=== PATIENT | male | born 1945 | race Hispanic/Latino ===

== ENCOUNTER 2019-04-03 06:13 | Inpatient (IN) | payer MEDICARE, SELFPAY ==
[2019-03-20 13:44] VITALS: BMI 27.5
[2019-04-03] VITALS (15 sets, daily range): BP systolic 95–161; BP diastolic 49–105; PULSE 59–96; RESP 12–20; TEMP 35.8–36.6; O2SAT 94–100; BMI 27.4
--- NOTE | 2019-04-03 | DI.RAD.S_ITS ---
PROCEDURE: XR LUMBAR SPINE 2-3V INDICATIONS: L3-4 TLIF, L4-5 HWR, L3-5 PSF W/ INSTRUMENTATION TECHNIQUE: 2 views of the lumbar spine were acquired. COMPARISON: [facility], CR, L-SPINE 2-3 VIEWS, 10/15/2015, 9:50. [facility], CR, L-SPINE 2-3 VIEWS, 04/04/2009, 13:21. FINDINGS: Bones: 5 [id number] vertebrae are present. There is normal bony alignment established by extension of a previously present set of bilateral fixation devices crossing through the pedicles and with vertical fixation rods at L4-L5. Currently the interbody disc space are previously present at L4-L5 remains present, and a new interbody disc spacer is present at L3-4. The transverse pedicle screws and vertical fixation rods now cross from L3-L5. No vertebral body compression fractures. No suspicious bony lesions. Soft tissues: Overlying bowel gas pattern is normal. No suspicious soft tissue calcifications. IMPRESSION: Successful posterior fixation revision bilaterally now crossing from L3-L5 with interbody disc spacer is present at L3-4 and L4-5. Normal alignment established. Dictated by: Riccardo Yung M.D. on 04/03/2019 at 11:49 Approved by: Riccardo Yung M.D. on 04/03/2019 at 11:51
[2019-04-03] MEDS: LACTATED RINGERS 1,000 ML 42 ML IV ×2 (06:45→10:17)
--- NOTE | 2019-04-03 07:46 | PM.PREOP ---
Pre-operative Note Interval Note History & Physical reviewed/Exam performed by Physician: Yes Changes to H&P: No
[2019-04-03] MEDS: CEFAZOLIN 2 GM/100 ML FROZ.PIGGY IV (07:55)
--- NOTE | 2019-04-03 08:31 | SUR.OPER ---
Prone on spine table, head in foam head support, padded chest and pelvic supports, gel pad at knees, lower legs supported by pillows; nipples, genitalia and toes free of pressure, arms secured on foam padded arm boards at <90 degrees abduction. Tape over blanket at thigh secured to table.
[2019-04-03] MEDS: BUPIVACAINE 0.25% W/ EPI 30 ML VIAL INJ (08:45)
[2019-04-03] MEDS: BUPIVACAINE LIPOSOME 266 MG/20 ML VIAL INJ (08:45)
--- NOTE | 2019-04-03 09:54 | PC.NURSE ---
Day shift: Pt not on AC unit at this time.
--- NOTE | 2019-04-03 11:13 | SUR.OPER ---
Correction to Explant record: [employer] caps x 4, kathy 50mm x1, 55mm x1. These are the only explants.
--- NOTE | 2019-04-03 11:20 | PM.OP.1 ---
Operative Date/Time/Diagnoses Date of procedure: 04/03/19 Time of procedure: 07:53 Pre-op diagnosis: 1. L3-4, L4-5 spinal stenosis 2. L4-5 hx of fusion 3. L3-4, L4-5 spondylosis with radiculopathy Post-op diagnosis: same Procedure & Clinicians Procedure: 1. L3-4 posterolateral and posterior interbody fusion 2. L3-4 posterior interbody cage placement 3. L4-5 posterior non-segmental instrumentation removal 4. L4-5 revision laminectomy with exploration of fusion 5. L3-4, L4-5 posterior segmental instrumentation with pedicle screw placement 6. L4-5 posterolatearl fusion 7. Calvin of bone marrow from iliac crest through a separate incision 8. Utilization of microsurgical technique and operating microscope Same procedure as scheduled: Yes Indications: Patient has been having chronic back pain and worsening lumbar radiculopathy. Patient had prior lumbar fusion at L4-5 level with good relief of pain until about 6 months ago. Patient failed multiple conservative management with worsening pain weakness and numbness in her lower extremity. Patient has been having difficulty performing activity of daily living. After discussing risks benefits of treatment options, patient elected proceed with surgery. Surgeon: Millicent Barrett Stamping Operator: Stephanie Melton Click Yes if Unassisted: No Anesthesia Type: General Operative Notes Closure Type: primary Specimen(s): none sent Prosthetic devices, grafts, tissues, transplants, or devices: GLobus revolve screws, Rise cage Applied: catheter Estimated Blood Loss (mL): 50 Blood products transfused: none Procedure in detail: Patient was seen in the preoperative area. Risks and benefits of the surgery was discussed with the patient. Informed consent was obtained from the patient and placed in the chart. Surgical site was marked. Patient was taken to the operative room. General anesthesia was administered. Prophylactic antibiotic was given to the patient less than 30 min before the incision was made. Patient was placed into a prone position on the Luisito table. Patient's back was then prepped and draped in the sterile fashion. Time-out was performed at this time. Using patient's previous scar incision was made over the L3-4 L4-5 interval on the right side. Fascia was incised in line with skin incision. Patient's previously placed hardware over the L4-5 level was identified by dissecting down to the level the hardware using a Bovie and a Hagen. The locking caps which was removed using globus screwdriver. The locking kathy was then removed from the tulips of the pedicle screws using a Jaziel. The pedicle screws were then removed using the screwdriver. The screws were found to have good purchase except right L5 pedicle screws. The Globus MARS retractors was then placed into the wound and docked onto the L3 lamina using C-arm guidance. Using microsurgical technique and operating microscope a laminectomy facetectomy was performed by removing the L3 lamina and the L3-4 facet. Patient was found have severe neural foramen stenosis which required a total facetectomy at rendered L3-4 level grossly unstable and requiring a fusion procedure the same time. The disc space at L3-4 level was identified next. And a total diskectomy was performed at L3-4 level. The endplates were decorticated using a rasp and shaver. The total diskectomy and decortication was performed at L3-4 level in order to to accomplish a L3-4 fusion. The local bone from the laminectomy and facetectomy was saved for local bone grafting. After the total diskectomy and decortication was completed, Bio4 bone graft material was combined with local bone that was harvested earlier. At this time, a separate skin is incision was made over the iliac crest. A Jamshidi needle was inserted into the iliac crest through a separate skin incision. 5 cc of bone marrow aspiration was obtained through the separate skin incision using a Jamshidi needle from the iliac crest. The bone marrow aspiration was combined with local bone and the Bio4 bone grafting material. The bone grafting material was placed into the L3-4 interbody space along with a expandable cage. The cage was expanded to its maximum height using the torque limiting screwdriver. At this time a mirror image incision was made on the left side. The fascia was incised in line with the skin incision. Patient's previously placed hardware on the left side was then removed in the same fashion as it was on the right side. The hardware was found to have good purchase. The fusion mass on the left side was exposed by performing a left-sided hemilaminectomy at L4-5 level. The hemilaminectomy was performed using the Kerrison rongeur to undercut the lamina as well removing additional epidural scar tissue for purpose of decompressing the epidural space. The fusion mass was explored and was found have visible motion indicating pseudoarthrosis. Globus MARS retractor was inserted and docked onto the L3-4 L4-5 posterolateral gutter. Using the power drill, posterior-lateral decortication was performed at L3-4 L4-5 level until bleeding cortical bone was identified. The remaining bone grafting material was placed into the L3-4 L4-5 posterior lateral gutter he order to accomplish posterolateral fusion at the L3-4 L4-5 level. Using the double C-arm technique, pedicle screws were placed into the L3, L4 and L5 pedicles bilaterally. This was done by placing the Jamshidi needle into the pedicles, then placing the guidewires over the Jamshidi needle, and finally placing the cannulated screws over the guidewires bilaterally. After the pedicle screws were placed, 2 titanium rods was locked into the heads of the pedicle screws using locking caps and torque limiting screwdriver. After all the hardware was placed, and confirmed with AP and lateral C-arm imaging, the wound was then irrigated with sterile normal saline and packed with Ray-Marva gauze for 3 min to accomplish hemostasis. After the gauze was removed the deep fascia was closed with #1 Vicryl suture. The subcutaneous layer was closed with 2-0 Vicryl. The skin was closed with skin jose. Patient tolerated the procedure well. There were no complications. Complications: none Post-operative Condition: stable Disposition: PACU Plan for aftercare: Admit to in patient hospital
[2019-04-03] MEDS: HYDROMORPHONE 2 MG INJ 0.5 MG IV ×4 (11:50→12:05)
--- NOTE | 2019-04-03 12:51 | PC.NURSE ---
Day shift: Pt on unit from PACU at approx 1240. Oriented to room and call light. Spouse at bedside for support. Call light in reach. Pt agrees to not get OOB w/o help from staff. BAck dressing is CDI. PPP and CMS ok. Foot SCD's in place.
[2019-04-03] MEDS: SODIUM CHLORIDE 0.9% 1,000 ML 100 ML IV ×2 (13:37→23:50)
[2019-04-03] MEDS: OXYCODONE/ACETAMINOPHEN 5/325 TABLET 2 TAB PO ×2 (13:41→21:01)
[2019-04-03] MEDS: HYDROMORPHONE 0.5 MG INJ IV ×2 (13:48→18:15)
--- NOTE | 2019-04-03 17:12 | PT.IIE ---
Addendum entered and electronically signed by Estela Holcomb, PT 04/03/19 17:13: BP remained steady throughout evaluation: 145/106 supine, 155/99 sitting, 150/90 standing. SpO2 was 95-99% on room air. Original Note: Current Diagnoses Spinal stenosis, lumbar region without neurogenic claudication (04/03/19) Arthrodesis status (04/03/19) Surgery Performed Operation Date: 04/03/19 07:45 Actual Procedures p L3-4 Translaminar interbody fusion, L4-5 Hardware removal, L3-5 Posterior spinal fusion with instrumentation - Millicent Barrett MD Surgical History (Last Updated 03/20/19 @ 14:14 by Faina Dang RN) History of colonoscopy with polypectomy (Acute) Hx of bilateral cataract extraction (Acute) Hx of cardiac cath (Acute ~06/2009) Hx of hernia repair (Acute) Hx of tonsillectomy (Acute) S/P lumbar fusion (Acute ~2004) S/P lumbar fusion (Acute ~09/2015) Status post implantation of testicular prosthesis (Acute) Medical History (Last Updated 03/20/19 @ 14:12 by Faina Dang RN) Anxiety (Acute) Arthritis (Acute) CAD (coronary artery disease) (Acute) Chronic neck and back pain (Acute) Diabetes (Acute) Elevated LFTs (Acute) Hearing impaired (Acute) HLD (hyperlipidemia) (Acute) HTN (hypertension) (Acute) Hypogonadism in male (Acute) Migraines (Acute) Prostatitis (Acute) Sleep apnea (Acute) Spinal stenosis (Acute) Syncope, vasovagal (Acute) Physical Therapy Inpatient Evaluation/Re-Eval M1 PT/OT-IP Prior Functional Status Start: 04/03/19 14:45 Freq: NEEDED Status: Active Protocol: Document 04/03/19 16:54 AW (Rec: 04/03/19 17:12 AW [id number]) Medical Review Prior Functional Status Medical History Reviewed Yes Diet/Fluid Consistency Regular Communication Edser is able to make his needs known. Mobility and Gait Pt reports use of FWW or SPC for most home and community mobility at baseline Activities of Daily Living and IADL's Pt was independent in all ADL/ IADL's, including driving Prior Functional Level (Other details) Pt reports no falls in the past year Social History Household Members spouse,children Living Arrangements House Number of Floors (Floors) Two Floors Number of Stairs To Enter/Railing? 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 His is also retired; she is available and able to assist. M2 PT-IP Current Condition Start: 04/03/19 14:45 Freq: NEEDED Status: Active Protocol: Document 04/03/19 16:54 AW (Rec: 04/03/19 17:12 AW [id number]) Physical Therapy Current Condition Current Condition Evaluation Date 04/03/19 Treatment Diagnosis s/p L3-L5 TLIF, impaired bed mobility, transfers, and gait Precautions Lumbar Precautions Log Roll,No Twisting,Limit Bending,Lifting Restriction of 10 lbs,Gait Belt above Incisional Area Other Precautions Pt currently on 1L supplemental oxygen Weight Bearing Status Weight Bearing Status Full Weight Bearing M3 PT-IP Subjective Start: 04/03/19 14:45 Freq: NEEDED Status: Active Protocol: Document 04/03/19 16:54 AW (Rec: 04/03/19 17:12 AW [id number]) Subjective Physical Therapy Visit Type Type Initial Evaluation Visit Start Time 15:50 Visit Stop Time 16:25 Total Visit Minutes 35 Number of 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 At 1550, patient was still sleeping but able to be roused . He was pleasant and willing to work with PT Patient Goals Pt would like to return home with his 's help. Therapy Pain Assessment Pain When Pain Assessed During Mobility Pain Present Pain Present Pain Reported Location Lower Back Intensity 7 Scale Used Numeric (1 - 10) Pain Management Techniques Modification of Treatment, Timing of Activity with Medications M4 PT-IP Mobility and Gait Start: 04/03/19 14:45 Freq: NEEDED Status: Active Protocol: Document 04/03/19 16:54 AW (Rec: 04/03/19 17:12 AW [id number]) PT-Bed Mobility Assessment Rolling Type of Rolling Log Rolling Level of Assist Contact Guard Assistance Supine to Sit Supine to Sit Minimal Assistance Scooting Scooting to Edge of Bed Standby Assistance PT-Transfer Assessment Sit to and From Stand Sit to and from Stand Contact Guard Assistance Equipment Transfer Assistive Device Gait Belt,Front Wheeled Walker Orthotic/Prosthetic Devices or Brace: No Transfers Transfer Destination Chair Transfer Technique Stand Step Pivot Transfer Ability Level of Assist Contact Guard Assistance Comments Mobility Comments Pt required CGA and verbal cues for hand placement to increase safety and efficiency of transfers Gait Assessment Gait Gait Assistance Required: Contact Guard Assist Distance (Feet) 60 Able to Maintain Weight Bearing Status Yes During Gait Assistive Devices Assistive Device Gait Belt,Front Wheeled Walker Orthotic/Prosthetic Devices or Brace: No Gait Deviations General Gait Pattern Antalgic,Decreased Stride Length,Flexed Trunk Factors Limiting Gait Function Factors Limiting Gait Function Decreased Activity Tolerance, Decreased Strength,Limited Range of Motion,Pain Comments Gait Comments Pt able to ambulate while maintaining spinal precautions . He was careful to avoid twisting at all time, especially during turns PT-Balance Assessment Sitting Balance and Reactions Static Sitting Balance Ability Good Dynamic Sitting Balance Ability Good Standing Balance and Reactions Static Standing Balance Ability Good Dynamic Standing Balance Ability Good Device Used FWW M5 PT-IP Objective Assessments Start: 04/03/19 14:45 Freq: NEEDED Status: Active Protocol: Document 04/03/19 16:54 AW (Rec: 04/03/19 17:12 AW [id number]) Orientation Orientation/Cognition Level of Alertness Alert Orientation Name,Month,Place,Situation Language Function Ability No Deficits Noted Safety Awareness Understands Safety Issues Memory Description No Deficits Noted Gross Range of Motion Upper Extremity ROM Assessment Within Functional Limits Lower Extremity ROM Assessment Within Functional Limits Strength Upper Extremity Strength Assessment Within Functional Limits Lower Extremity Strength Assessment Within Functional Limits Coordination Assessment Gross Coordination Gross Coordination WNL Sensation Assessment Sensation Gross Sensation WNL Muscle Tone Muscle Tone WNL Yes M7 PT-IP Assessment and Plan Start: 04/03/19 14:45 Freq: NEEDED Status: Active Protocol: Document 04/03/19 16:54 AW (Rec: 04/03/19 17:12 AW [id number]) PT Summary Assessment and Plan Potential Rehabilitation Potential Good Status of Condition at Evaluation Evolving Summary Impairments Pain,ROM,Bed Mobility, Transfers,Gait,Activity Tolerance Assessment Summary Pt is a 73 yo man with remote history of L4-L5 fusion who is admitted now for L3-L5 TLIF. PLOF: Pt used a FWW and/or SPC for most mobility, independent with all ADL/IADL' s. CLOF: Pt is seen on POD0 following TLIF. He is pleasant and able to follow directions . He required cueing and CGA for log rolling to the left. Transfers required CGA at most . Edser has good potential to meet rehab goals. At this time , PT recommends discharge to home with spouse assist as needed, but will continue to assess as anesthesia may be boosting his performance this afternoon. Goals Bed Mobility Goal Independent Transfer Goal Independent Gait Goal Independent Gait Distance 200 feet Other Goals Pt will ascend/descend 13 steps with left hand rail CGA or better. Frequency of Treatment Frequency Of Treatment Twice a Day Treatment Plan Physical Therapy Treatment Plan Bed Mobility Training,Transfer Training,Gait Training, Therapeutic Exercise,Balance Retraining,Post Op Education, Discharge Planning,Hot or Cold Pack,Neuromuscular Re-ed, Coordination Retraining,Manual Therapy Recommendations To Nursing Amount of Assist Needed 1 Person Assist Discharge Recommendations PT Discharge Recommendations Home with Assistance
[2019-04-03] MEDS: CLINDAMYCIN 900 MG/50 ML PIGGYBACK 50 MG IV ×2 (17:23→23:36)
[2019-04-03] MEDS: ONDANSETRON 4 MG/2 ML INJ IV ×2 (17:26→23:36)
[2019-04-03] MEDS: ACETAMINOPHEN 325 MG TABLET 650 MG PO (18:15)
[2019-04-03] MEDS: hydrOXYzine pamoate 25 MG CAPSULE PO ×2 (18:16→21:01)
[2019-04-03] MEDS: SENNOSIDES 8.6 MG TABLET 17.2 MG PO (20:22)
[2019-04-03] MEDS: DOCUSATE 100 MG CAPSULE PO (20:22)
[2019-04-03] MEDS: CITALOPRAM 20 MG TABLET PO (20:22)
[2019-04-03] MEDS: GLIMEPIRIDE 2 MG TABLET 1 MG PO (20:23)
[2019-04-03] MEDS: SIMVASTATIN 20 MG TABLET PO (20:24)
[2019-04-03] MEDS: MAG HYDROX/ALUM/SIMETH 30 ML UDC PO (21:05)
--- NOTE | 2019-04-03 21:30 | PC.NURSE ---
Pt c/o nausea and pruritus most of evening shift: 700 mLs of watery emesis and unable to eat lunch or dinner. Good relief with Zofran and Vistaril. Rates pain 4-5/10.
[2019-04-04 03:07] VITALS: BP 135/78; PULSE 83; RESP 18; TEMP 36.7; O2SAT 100
[2019-04-04 06:42] LABS: Hemoglobin 12.5 g/dL (13.5-17.5)
[2019-04-04 07:50] VITALS: BP 146/92; PULSE 82; RESP 16; TEMP 37.1; O2SAT 100
--- NOTE | 2019-04-04 08:23 | P.PN_ITS ---
Subjective Subjective Date Patient Seen: 04/04/19 Time Patient Seen: 08:23 Interval history: POD 1 s/p L3-[address] Barrett. Patient's pain was well- controlled last night. He did have some nausea and was provided Zofran. He does complain of itching. The Vistaril seems to help with this. He has not been up with PT yet. Oxygen last night. History of sleep apnea. Exam Vital Signs (past 8 hours): - 04/04/19 03:07 Temperature 98.0 F Pulse Rate 83 Respiratory Rate 18 Blood Pressure 135/78 Pulse Oximetry 100 Oxygen Delivery Method Nasal Cannula Oxygen Flow Rate 1 Narrative Exam Narrative: Patient laying in bed in NAD. 1 L of O2. Sensation intact to light touch throughout bilateral extremities. Calves are soft, compressible, nontender bilaterally. Pulses are symmetrical. He is able to actively dorsiflex plantar flex. Objective Labs Result Diagrams: 04/04/19 06:00 Labs: Laboratory Results - last 24 hr 04/04/19 06:00 Hgb 12.5 L Hct 38.0 L Assessment & Plan Post-op Postoperative Procedures: Procedures Operation Date: 04/03/19 07:45 Actual Procedures Side Surgeon p L3-4 Translaminar interbody fusion, L4-5 Hardware removal, L3-5 Posterior spinal fusion with instrumentation Millicent Barrett MD patient will mobilize with physical therapy today. No excessive bending, lifting, or twisting. Continue current pain control. DC Choudhury catheter today. Patient will likely discharge home tomorrow. Quality VTE Deep Vein Thrombosis/Pulmonary Embolism Present on Admission: No
[2019-04-04] MEDS: GLIMEPIRIDE 2 MG TABLET 1 MG PO ×2 (09:27→21:50)
[2019-04-04] MEDS: ACETAMINOPHEN 325 MG TABLET 650 MG PO (09:30)
[2019-04-04] MEDS: DOCUSATE 100 MG CAPSULE PO ×2 (09:31→21:49)
[2019-04-04] MEDS: LOSARTAN 50 MG TABLET 100 MG PO (09:31)
[2019-04-04] MEDS: PANTOPRAZOLE 40 MG TABLET PO (09:31)
[2019-04-04] MEDS: hydrOXYzine pamoate 25 MG CAPSULE PO ×2 (09:32→16:35)
[2019-04-04] MEDS: CITALOPRAM 20 MG TABLET PO ×2 (09:58→21:50)
--- NOTE | 2019-04-04 10:13 | PC.NURSE ---
Addendum entered by Abi Lantigua R.N. 04/04/19 14:01: PAIN/INTEG - lying bed watching tv, states pain is zero, vistaril provided adequate relief for any itching, declines any addl medications at this time. Addendum entered by Abi Lantigau R.N. 04/04/19 11:50: MS/PAIN - pt reports good result from earlier percocet, pain 1 on scale 0/10 after mobilizing with OT, per OT did well with limits and log rolled well, to chair. Addendum entered by Abi Lantigua R.N. 04/04/19 10:40: PAIN - after mobilizing, states back discomfort increased to 6 on scale 0/10, discussed medications and has taken percocet previously, given 2 tabs and crackers, earlier vistaril for itching. Original Note: AM NOTE - pt is alert, his cpap is off at bedside report, 2l 98-100%, denies nausea this am and carlton gen diet, +bt, some belching, barrier dsg w/small qty shadow drainage, intact w/o leakage, states back discomfort 1 on scale 0/10, discussed medications, states hx of pruritis with both oxycodone or hydrocodone in past, given 650mg po tylenol and 25mg vistaril for mobilization, batres balloon deflated and dc'd w/o difficulty, pt up w/standby assist, does need reminders to limit b,t and to log roll, ra 98%.
[2019-04-04] MEDS: OXYCODONE/ACETAMINOPHEN 5/325 TABLET 2 TAB PO ×3 (10:31→21:49)
--- NOTE | 2019-04-04 11:30 | PT.IPTN ---
Current Diagnoses Spinal stenosis, lumbar region without neurogenic claudication (04/03/19) Arthrodesis status (04/03/19) Surgery Performed Operation Date: 04/03/19 07:45 Actual Procedures p L3-4 Translaminar interbody fusion, L4-5 Hardware removal, L3-5 Posterior spinal fusion with instrumentation - Millicent Barrett MD Physical Therapy Treatment Note M2 PT-IP Current Condition Start: 04/03/19 14:45 Freq: NEEDED Status: Active Protocol: Document 04/03/19 16:54 AW (Rec: 04/03/19 17:12 AW [id number]) Physical Therapy Current Condition Current Condition Evaluation Date 04/03/19 Treatment Diagnosis s/p L3-L5 TLIF, impaired bed mobility, transfers, and gait Precautions Lumbar Precautions Log Roll,No Twisting,Limit Bending,Lifting Restriction of 10 lbs,Gait Belt above Incisional Area Other Precautions Pt currently on 1L supplemental oxygen Weight Bearing Status Weight Bearing Status Full Weight Bearing M3 PT-IP Subjective Start: 04/03/19 14:45 Freq: NEEDED Status: Active Protocol: Document 04/04/19 11:28 HH (Rec: 04/04/19 11:30 HH [id number]) Subjective Physical Therapy Visit Type Type Patient Unavailable Visit Start Time 11:25 Notes Patient is doing initial evaluation with MARY Randall. Reymundo PT in pm. M4 PT-IP Mobility and Gait Start: 04/03/19 14:45 Freq: NEEDED Status: Active Protocol: Document 04/03/19 16:54 AW (Rec: 04/03/19 17:12 AW [id number]) PT-Bed Mobility Assessment Rolling Type of Rolling Log Rolling Level of Assist Contact Guard Assistance Supine to Sit Supine to Sit Minimal Assistance Scooting Scooting to Edge of Bed Standby Assistance PT-Transfer Assessment Sit to and From Stand Sit to and from Stand Contact Guard Assistance Equipment Transfer Assistive Device Gait Belt,Front Wheeled Walker Orthotic/Prosthetic Devices or Brace: No Transfers Transfer Destination Chair Transfer Technique Stand Step Pivot Transfer Ability Level of Assist Contact Guard Assistance Comments Mobility Comments Pt required CGA and verbal cues for hand placement to increase safety and efficiency of transfers Gait Assessment Gait Gait Assistance Required: Contact Guard Assist Distance (Feet) 60 Able to Maintain Weight Bearing Status Yes During Gait Assistive Devices Assistive Device Gait Belt,Front Wheeled Walker Orthotic/Prosthetic Devices or Brace: No Gait Deviations General Gait Pattern Antalgic,Decreased Stride Length,Flexed Trunk Factors Limiting Gait Function Factors Limiting Gait Function Decreased Activity Tolerance, Decreased Strength,Limited Range of Motion,Pain Comments Gait Comments Pt able to ambulate while maintaining spinal precautions . He was careful to avoid twisting at all time, especially during turns PT-Balance Assessment Sitting Balance and Reactions Static Sitting Balance Ability Good Dynamic Sitting Balance Ability Good Standing Balance and Reactions Static Standing Balance Ability Good Dynamic Standing Balance Ability Good Device Used FWW M5 PT-IP Objective Assessments Start: 04/03/19 14:45 Freq: NEEDED Status: Active Protocol: Document 04/03/19 16:54 AW (Rec: 04/03/19 17:12 AW [id number]) Orientation Orientation/Cognition Level of Alertness Alert Orientation Name,Month,Place,Situation Language Function Ability No Deficits Noted Safety Awareness Understands Safety Issues Memory Description No Deficits Noted Gross Range of Motion Upper Extremity ROM Assessment Within Functional Limits Lower Extremity ROM Assessment Within Functional Limits Strength Upper Extremity Strength Assessment Within Functional Limits Lower Extremity Strength Assessment Within Functional Limits Coordination Assessment Gross Coordination Gross Coordination WNL Sensation Assessment Sensation Gross Sensation WNL Muscle Tone Muscle Tone WNL Yes M7 PT-IP Assessment and Plan Start: 04/03/19 14:45 Freq: NEEDED Status: Active Protocol: Document 04/03/19 16:54 AW (Rec: 04/03/19 17:12 AW [id number]) PT Summary Assessment and Plan Potential Rehabilitation Potential Good Status of Condition at Evaluation Evolving Summary Impairments Pain,ROM,Bed Mobility, Transfers,Gait,Activity Tolerance Assessment Summary Pt is a 73 yo man with remote history of L4-L5 fusion who is admitted now for L3-L5 TLIF. PLOF: Pt used a FWW and/or SPC for most mobility, independent with all ADL/IADL' s. CLOF: Pt is seen on POD0 following TLIF. He is pleasant and able to follow directions . He required cueing and CGA for log rolling to the left. Transfers required CGA at most . Edser has good potential to meet rehab goals. At this time , PT recommends discharge to home with spouse assist as needed, but will continue to assess as anesthesia may be boosting his performance this afternoon. Goals Bed Mobility Goal Independent Transfer Goal Independent Gait Goal Independent Gait Distance 200 feet Other Goals Pt will ascend/descend 13 steps with left hand rail CGA or better. Frequency of Treatment Frequency Of Treatment Twice a Day Treatment Plan Physical Therapy Treatment Plan Bed Mobility Training,Transfer Training,Gait Training, Therapeutic Exercise,Balance Retraining,Post Op Education, Discharge Planning,Hot or Cold Pack,Neuromuscular Re-ed, Coordination Retraining,Manual Therapy Recommendations To Nursing Amount of Assist Needed 1 Person Assist Discharge Recommendations PT Discharge Recommendations Home with Assistance
--- NOTE | 2019-04-04 11:51 | OT.IP.EVAL ---
Current Diagnoses Spinal stenosis, lumbar region without neurogenic claudication (04/03/19) Arthrodesis status (04/03/19) Surgery Performed Operation Date: 04/03/19 07:45 Actual Procedures p L3-4 Translaminar interbody fusion, L4-5 Hardware removal, L3-5 Posterior spinal fusion with instrumentation - Millicent Barrett MD Past Medical History (Last Updated 03/20/19 @ 14:12 by Faina Dang, RN) Anxiety (Acute) Arthritis (Acute) CAD (coronary artery disease) (Acute) Chronic neck and back pain (Acute) Diabetes (Acute) Elevated LFTs (Acute) Hearing impaired (Acute) HLD (hyperlipidemia) (Acute) HTN (hypertension) (Acute) Hypogonadism in male (Acute) Migraines (Acute) Prostatitis (Acute) Sleep apnea (Acute) Spinal stenosis (Acute) Syncope, vasovagal (Acute) Surgical History (Last Updated 03/20/19 @ 14:14 by Faina Dang RN) History of colonoscopy with polypectomy (Acute) Hx of bilateral cataract extraction (Acute) Hx of cardiac cath (Acute ~06/2009) Hx of hernia repair (Acute) Hx of tonsillectomy (Acute) S/P lumbar fusion (Acute ~2004) S/P lumbar fusion (Acute ~09/2015) Status post implantation of testicular prosthesis (Acute) Occupational Therapy Inpatient Evaluation/Re-Eval M1 PT/OT-IP Prior Functional Status Start: 04/03/19 14:45 Freq: NEEDED Status: Active Protocol: Document 04/04/19 11:51 NESSA (Rec: 04/04/19 17:12 NESSA [id number]) Medical Review Prior Functional Status Medical History Reviewed Yes Diet/Fluid Consistency Regular Communication WNL Mobility and Gait Pt reports using FWW or SPC for most home and community mobility prior to admit. Activities of Daily Living and IADL's Pt was independent in all ADL/ IADL's, including driving. His and adult son can assist with IADLS PRN at home. Note that both and son work. works 3am to 11am per pt. Prior Functional Level (Other details) Pt reports no falls in the past year. Social History Household Members spouse,children Living Arrangements House Number of Floors (Floors) Two Floors Number of Stairs To Enter/Railing? 5 DUSTY with left rail ascending ; 13 steps inside with left rail ascending Home Environment Standard Height Toilet,Tub/ Shower Home Equipment Front Wheel Walker,Straight Cane,Long Handled Sponge,Long Handled Shoe Horn,Car Pre Cooler Employment Status Retired Additional Social History Comment Pt lives with and adult son, 5 yr old granddaughter. Pt is not responsible for any childcare administrator. M2 OT-IP Current Condition Start: 04/04/19 09:12 Freq: Status: Active Protocol: Document 04/04/19 11:51 PJM (Rec: 04/04/19 17:12 PJM [id number]) Occupational Therapy Current Condition Current Condition Evaluation Date 04/04/19 Treatment Diagnosis decreased self care, functional mobility s/p L3-5 PLIF Diagnosis Onset Date 04/03/19 Post Operative Precautions Lumbar Precautions Log Roll,No Twisting,Limit Bending,Lifting Restriction of 10 lbs,Gait Belt above Incisional Area M3 OT- IP Subjective and Pain Start: 04/04/19 09:12 Freq: Status: Active Protocol: Document 04/04/19 11:51 PJM (Rec: 04/04/19 17:12 PJM [email or web address]) OT- Subjective Occupational Therapy Visit Type Type Initial Evaluation Visit Start Time 11:16 Visit Stop Time 11:51 Total Visit Minutes 35 Notes not here this session to confirm how much assist she can provide at home. Occupational Therapy Visit Comments Patient Comments How do I roll out of bed? I bend my knees, right? Patient/Caregiver Goals to go home tomorrow OT Pain Assessment Pain When Pain Assessed After Treatment Pain Present Pain Present Pain Reported Location Lower Back Intensity 1 Description Aching,Acute Management Techniques Distraction,Re-positioning, Timing of Activity with Medications M4 OT- IP ADL's Start: 04/04/19 09:12 Freq: Status: Active Protocol: Document 04/04/19 11:51 PJM (Rec: 04/04/19 17:12 PJ [id number]) OT [id number] General Evaluation Self-Feeding Ability Independent OT ADL-Grooming General Evaluation Grooming Ability Standby Assistance Comments OT Grooming Comments for hand washing at sink, provided education re: body mechanics OT ADL-Oral Care Comments Oral Care Comments to be assessed OT ADL-Dressing Assistive Devices Dressing Assistive Devices Long Handled Shoe Horn,Car Pre Cooler ,Sock Aid Comments OT Dressing Comments Began education re: body mechanics and use of certified midwife, sock aid, long shoe horn for lower body dressing. Provided sock aid at pt request. He has certified midwife and long shoe horn. Pt wears slip on shoes OT ADL-Toileting General Evaluation Toileting Ability Standby Assistance OT ADL-Bathing Comments OT Bathing Comments to be assessed in AM M5 OT- IP IADL's Start: 04/04/19 09:12 Freq: Status: Active Protocol: Document 04/04/19 11:51 PJM (Rec: 04/04/19 17:12 PJ [id number]) OT-Instrumental Activities of Daily Living Deficits IADL Deficits Identified Deficits Home Safety Awareness Awareness of Need for Assistance at Home Good Awareness Medication Management Medication Management Comments Pt may need supervision due to memory deficits Money Management Money Management Caregiver Provides Assistance Meal Preparation Meal Preparation Caregiver Provides Assist Meal Preparation Comments family to assist until pt able Special Agent Group Insurance Special Agent Group Insurance Caregiver Provides Assist Special Agent Group Insurance Comments family to assist until pt able Driving Driving Caregiver Provides Assist Driving Comments family to assist until pt able , pt states he still drives M6 OT- IP Functional Cognition Start: 04/04/19 09:12 Freq: Status: Active Protocol: Document 04/04/19 11:51 PJM (Rec: 04/04/19 17:12 [facility] [email or web address]) Cognitive Factors Limiting Selfcare Function Cognitive Ability Level of Alertness Alert Patient Orientation Name,Place,Situation Attention Span Ability Capable of Focused Attention, Capable of Sustained Attention Ability to Follow Commands Able to Follow One Step Commands Memory Description Short Term Impaired Cognitive Comments Cognitive Assessment Comments Pt still needs max verbal cues for log rolling technique after prior education by P.T. Provided additional written information re: lumbar spine precautions as had already taken packet home. OT- Vision and Hearing OT- Hearing Assessment OT- Hearing Assessment WFL OT- Vision Assessment Visual Acuity Glasses For Reading M7 OT- IP Mobility and Balance Start: 04/04/19 09:12 Freq: Status: Active Protocol: Document 04/04/19 11:51 PJM (Rec: 04/04/19 17:12 [facility] [email or web address]) OT- Bed Mobility Assessment Rolling Type of Rolling Roll to Left Level of Assistance Standby Assistance Supine to Sit Supine to Sit Assist Standby Assistance Scooting Scooting to Edge of Bed Standby Assistance OT-Transfer Assessment Sit to and From Stand Sit to and from Stand Standby Assistance,1 Person Assistance Transfers Transfer Ability Standby Assistance,1 Person Assistance Technique Transfer Destination Chair,Toilet Transfer Technique Stand Step Pivot Devices Transfer Assistive Devices Gait Belt,Front Wheeled Walker Comments Mobility Comments Pt needs max verbal cues for log rolling and min cues for FWW use. Short steps noted. OT- Gait Assessment Gait Gait Assistance Required: Contact Guard Assist Distance (Feet) 25 Assistive Devices Assistive Device Gait Belt,Front Wheeled Walker Comments Gait Ability Comments Pt takes short shuffling steps with FWW. OT- Balance Assessment Sitting Balance and Reactions Static Sitting Balance Ability Good Dynamic Sitting Balance Ability Good Standing Balance and Reactions Static Standing Balance Ability Good Dynamic Standing Balance Ability Good Comments Other Balance Tests/Deviations/Treatment during lower body clothing : management M8 OT- IP Objective Assessments Start: 04/04/19 09:12 Freq: Status: Active Protocol: Document 04/04/19 11:51 PJM (Rec: 04/04/19 17:12 PJM [id number]) OT Gross Range of Motion Upper Extremity Range of Motion Assessment Within Functional Limits OT Strength Upper Extremity Strength Assessment Within Functional Limits Hand Court Assistant Strength Hand Dominance Right OT- Coordination Assessment Comments Coordination Comments BUE WFL OT-Muscle Tone Assessment Muscle Tone WNL Yes OT Sensation Assessment Comments Summary Comments BUE WFL Edema Edema Absent M9 OT- IP Assessment and Plan Start: 04/04/19 09:12 Freq: Status: Active Protocol: Document 04/04/19 11:51 PJM (Rec: 04/04/19 17:12 PJM [id number]) OT Summary Assessment and Plan Potential Rehabilitation Potential Good Analytic Complexity at Evaluation Low Summary OT Impairments Pain,Functional Cognition, Functional Mobility,Grooming, Dressing,Toileting,Bathing, Toilet Transfers,Shower Transfers Assessment Summary Low complexity OT assessment completed. Began education re: new lumbar spine precautions with this 73 yr old male s/p L3-5 PLIF with removal of previous hardware. Pt currently moving well but needs max verbal cues for log rolling and intermittent verbal cues to adhere to precautions during other self care tasks. He currently has mild performance deficits in functional mobility/transfers, lower body dressing, bathing and toileting. Pt will benefit from 1-2 additional OT visits and family training to ensure safety and independence in self care tasks. Pt plans to d/c home tomorrow if medically stable and clears P.T. Note pt has full flight of stairs at home to access his bedroom and bathroom. Will need to confirm how much assist working and working son can provide at home. Goals Grooming Goal Independent Dressing Goal Independent,Long Handled Shoe Horn,Car Pre Cooler,Sock Aid Toileting Goal Independent Bathing Goal Standby Assistance,Long Handled Sponge or [place] Toilet Transfer Goal Independent Shower Transfer Goal Contact Guard Assistance,Tub/ Shower Combination,Shower Chair Patient/Caregiver Education Goal Demonstrate Post-Op Precautions,Demonstrate Energy Conservation and Pacing, Caregiver Independent Assisting Patient OT-Other Goals Grooming to be done standing at sink with good body mechanics and safety awareness . Days to Meet Goals 1 Frequency of Treatment Frequency Of Treatment Once a Day Treatment Plan OT Treatment Plan ADL Training,Functional Mobility,Patient/Family Education,Discharge Planning Discharge Recommendations OT Discharge Recommendations Home with Assistance
[2019-04-04 12:31] VITALS: BP 158/88; PULSE 89; RESP 16; TEMP 36.6; O2SAT 98
--- NOTE | 2019-04-04 14:58 | PT.IPTN ---
Current Diagnoses Spinal stenosis, lumbar region without neurogenic claudication (04/03/19) Arthrodesis status (04/03/19) Surgery Performed Operation Date: 04/03/19 07:45 Actual Procedures p L3-4 Translaminar interbody fusion, L4-5 Hardware removal, L3-5 Posterior spinal fusion with instrumentation - Millicent Barrett MD Physical Therapy Treatment Note M2 PT-IP Current Condition Start: 04/03/19 14:45 Freq: NEEDED Status: Active Protocol: Document 04/03/19 16:54 AW (Rec: 04/03/19 17:12 AW [id number]) Physical Therapy Current Condition Current Condition Evaluation Date 04/03/19 Treatment Diagnosis s/p L3-L5 TLIF, impaired bed mobility, transfers, and gait Precautions Lumbar Precautions Log Roll,No Twisting,Limit Bending,Lifting Restriction of 10 lbs,Gait Belt above Incisional Area Other Precautions Pt currently on 1L supplemental oxygen Weight Bearing Status Weight Bearing Status Full Weight Bearing M3 PT-IP Subjective Start: 04/03/19 14:45 Freq: NEEDED Status: Active Protocol: Document 04/04/19 14:58 AB (Rec: 04/04/19 16:22 AB [id number]) Subjective Physical Therapy Visit Type Type Treatment Note Visit Start Time 14:58 Visit Stop Time 15:31 Total Visit Minutes 33 Number of [facility] MEDIC[facility] PHYSICIAN Visits 0 Physical Therapy Visit Comments Patient Comments pt agreeable to do PT Therapy Pain Assessment Pain When Pain Assessed At Rest Pain Present Pain Present Pain Reported Location Lower Back Intensity 1 Scale Used Numeric (1 - 10) Pain Management Techniques Re-positioning,Timing of Activity with Medications M4 PT-IP Mobility and Gait Start: 04/03/19 14:45 Freq: NEEDED Status: Active Protocol: Document 04/04/19 14:58 AB (Rec: 04/04/19 16:22 AB [id number]) PT-Bed Mobility Assessment Rolling Type of Rolling Log Rolling Level of Assist Standby Assistance Supine to Sit Supine to Sit Standby Assistance Sit to Supine Sit to Supine Standby Assistance Scooting Scooting to Edge of Bed Standby Assistance PT-Transfer Assessment Sit to and From Stand Sit to and from Stand Standby Assistance,Contact Guard Assistance,Use of Upper Extremities Equipment Transfer Assistive Device Gait Belt,Front Wheeled Walker Orthotic/Prosthetic Devices or Brace: No Transfers Transfer Destination Bed Transfer Ability Level of Assist Contact Guard Assistance Comments Mobility Comments bed mobility training x 5 reps : log roll bed mobility: pt completed with SBA and cues. pt with decrease short term memory and requires constant cues for precautions and techniques. pt requested to go back to bed after tx session and completed bed mobility SBA and cues. positioned pt in bed. call light and table placed within reach. Gait Assessment Gait Gait Assistance Required: Standby Assistance,Contact Guard Assist Distance (Feet) 300 Able to Maintain Weight Bearing Status Yes During Gait Assistive Devices Assistive Device Gait Belt,Front Wheeled Walker Orthotic/Prosthetic Devices or Brace: No Gait Deviations General Gait Pattern Antalgic,Decreased Stride Length,Decreased Feet Clearance Factors Limiting Gait Function Factors Limiting Gait Function Decreased Activity Tolerance, Decreased Strength,Difficulty Following Directions,Limited Range of Motion,Pain,Poor Balance,Poor Safety Awareness Comments Gait Comments pt completed ambulation using FWW SBA to CGA 250 + 300 ft. Stair Climbing Assessment Evaluation Level of Assist On Stairs Contact Guard Assistance Devices Stair Climbing Assistive Devices None,Right Railing Technique/Endurance Stair Climbing Direction Ascend and Descend Stair Climbing Technique Step Over Step,Step to Step Number of Steps Climbed 3 Stair Climbing Set # Repetitions (reps) 4 Comments Stair Climbing Comments pt completed up/down 3 steps x 4 reps using R rail ascending SBA. also completed up/down 1 step without rails x 6 reps CGA. M5 PT-IP Objective Assessments Start: 04/03/19 14:45 Freq: NEEDED Status: Active Protocol: Document 04/03/19 16:54 AW (Rec: 04/03/19 17:12 AW [id number]) Orientation Orientation/Cognition Level of Alertness Alert Orientation Name,Month,Place,Situation Language Function Ability No Deficits Noted Safety Awareness Understands Safety Issues Memory Description No Deficits Noted Gross Range of Motion Upper Extremity ROM Assessment Within Functional Limits Lower Extremity ROM Assessment Within Functional Limits Strength Upper Extremity Strength Assessment Within Functional Limits Lower Extremity Strength Assessment Within Functional Limits Coordination Assessment Gross Coordination Gross Coordination WNL Sensation Assessment Sensation Gross Sensation WNL Muscle Tone Muscle Tone WNL Yes M6 PT-IP Treatment Start: 04/03/19 14:45 Freq: NEEDED Status: Active Protocol: Document 04/04/19 14:58 AB (Rec: 04/04/19 16:22 AB [id number]) Physical Therapy Treatment Education Education Provided Precautions,Safety M7 PT-IP Assessment and Plan Start: 04/03/19 14:45 Freq: NEEDED Status: Active Protocol: Document 04/04/19 14:58 AB (Rec: 04/04/19 16:22 AB [id number]) PT Summary Assessment and Plan Potential Rehabilitation Potential Good Summary Impairments Pain,ROM,Strength,Balance, Coordination,Sensation,Tone, Cognition,Bed Mobility, Transfers,Gait,Activity Tolerance Progress Towards Goals Slow Progress due to Medical Issues Assessment Summary pt progressing with mobility and requiring SBA to CGA with mobility. pt with decrease cognition requiring cues for safety. pt plans to go home and spouse to assist home. Goals Bed Mobility Goal Independent Transfer Goal Independent Gait Goal Independent Gait Distance 300 Other Goals Pt will ascend/descend 13 steps with left hand rail CGA or better. Frequency of Treatment Frequency Of Treatment Twice a Day Treatment Plan Physical Therapy Treatment Plan Bed Mobility Training,Transfer Training,Gait Training, Therapeutic Exercise,Balance Retraining,Post Op Education, Discharge Planning,Hot or Cold Pack,Neuromuscular Re-ed, Coordination Retraining,Manual Therapy Recommendations To Nursing Amount of Assist Needed 1 Person Assist Discharge Recommendations PT Discharge Recommendations Home with Assistance
[2019-04-04 15:48] VITALS: BP 134/90; PULSE 88; RESP 16; TEMP 37; O2SAT 97
[2019-04-04] MEDS: MAG HYDROX/ALUM/SIMETH 30 ML UDC PO (16:35)
--- NOTE | 2019-04-04 17:27 | PC.NURSE ---
Addendum entered by Becca Bashir R.N. 04/04/19 23:44: Assisted with cpap for sleep. Pain meds as per pt request for incisional pain 11/08. Declines to wear scd's overnight. Encouraged ankle waving. Bed alarm as attempts out of bed independently despite staff educating pt in fall prevention and requests to use call light for staff to assist. Original Note: Pt has ambulated in hallway with P.T. @ beginning of shift. Now back in bed with spouse nearby. Pt admits to incisional back pain 11/08. Medicated as per emar and pt's request. Pt desires vistaril to aid with previous itching associated with narcotics as per dayshift report. Pt has full sensation to BL LE's. Palable pedal pulses BL. BL foot pumps in place. Pt reports h/o numbness to fingers BL and states this existed preoperatively and continues postoperatively. Pt is impulsive and requires repeated direction to call for staff assistance when needing/desiring out of bed. Pt's spouse reinforces this to pt. Bed alarm in place. Standby assistance into bathroom to void and returned to bed. Reinforced log roll, no bending or twisting. Continue with plan of care.
[2019-04-04 21:13] VITALS: BP 131/90; PULSE 83; RESP 20; TEMP 36.6; O2SAT 97
[2019-04-04] MEDS: SIMVASTATIN 20 MG TABLET PO (21:50)
[2019-04-04] MEDS: SODIUM CHLORIDE 0.9% FLUSH 10 ML IV (21:51)
[2019-04-04] MEDS: SENNOSIDES 8.6 MG TABLET 17.2 MG PO (21:54)
[2019-04-04 23:00] VITALS: BP 132/80; PULSE 77; RESP 16; TEMP 36; O2SAT 93
[2019-04-05] MEDS: OXYCODONE/ACETAMINOPHEN 5/325 TABLET 2 TAB PO ×2 (04:24→10:43)
[2019-04-05 04:34] VITALS: BP 123/76; PULSE 80; RESP 16; TEMP 36.8; O2SAT 95
[2019-04-05] MEDS: hydrOXYzine pamoate 25 MG CAPSULE PO ×2 (06:47→10:43)
--- NOTE | 2019-04-05 07:45 | PC.NURSE ---
Addendum entered by Abi Lantigua R.N. 04/05/19 11:00: DC - reviewed dc instructions with pt and spouse, scripts provided, saline lock dc'd, belongings gathered, including cell phone, has glasses, jewelry, own fww, clothing, shoes, assisted to wc and escorted by supervisor locomotive to family car. Addendum entered by Abi Lantigua R.N. 04/05/19 10:03: [employer]PA[employer] - showered with OT, removed barrier dsg, parallel stapled incisions intact w/o drainage, some surrounding bruising, replaced with coversite, discussed medications for discharge home and given percocet and vistaril with carmelina. Original Note: AM NOTE - pt is alert, states pain managed with earlier percocet 2 on scale 0/10, vistaril providing relief from itching, cpap off, ra 96%, bt present, no flatus, discussed constipation and narcotic use and added mom this am.
[2019-04-05 07:53] VITALS: BP 144/84; PULSE 72; RESP 20; TEMP 36.6; O2SAT 96
[2019-04-05] MEDS: DOCUSATE 100 MG CAPSULE PO (08:33)
[2019-04-05] MEDS: GLIMEPIRIDE 2 MG TABLET 1 MG PO (08:33)
[2019-04-05] MEDS: LOSARTAN 50 MG TABLET 100 MG PO (08:33)
[2019-04-05] MEDS: MAGNESIUM HYDROXIDE 30 ML UDC PO (08:33)
[2019-04-05] MEDS: CITALOPRAM 20 MG TABLET PO (08:33)
[2019-04-05] MEDS: SODIUM CHLORIDE 0.9% FLUSH 10 ML IV (08:34)
[2019-04-05] MEDS: PANTOPRAZOLE 40 MG TABLET PO (08:34)
--- NOTE | 2019-04-05 09:46 | P.DS_ITS ---
History of Present Illness History of Present Illness Date Patient Seen: 04/05/19 Time Patient Seen: 09:47 Chief complaint: [id number] Narrative: Patient's pain is [id number]. Denies fever chills. No nausea vomiting. Otherwise without complaints. Discharge Providers Provider Date of admission: 04/03/19 06:13 Discharge Date: 04/05/19 Primary care physician: Trisha Powell MD Consults: 04/03/19 07:13 Consult to Respiratory Therapy Evaluate & Treat Comment: Physician Instructions: Evaluate and treat 04/03/19 12:51 Consult to Occupational Therapy Evaluate & Treat Comment: Physician Instructions: Evaluate and treat Consult to Physical Therapy Evaluate & Treat Comment: Physician Instructions: Evaluate and Treat Discharge provider: Octavio Cortes PA-C Summary Hospital Course Discharge Diagnosis: 1. L3-4, L4-5 spinal stenosis 2. L4-5 hx of fusion 3. L3-4, L4-5 spondylosis with radiculopathy Hospital Course: Procedure: 1. L3-4 posterolateral and posterior interbody fusion 2. L3-4 posterior interbody cage placement 3. L4-5 posterior non-segmental instrumentation removal 4. L4-5 revision laminectomy with exploration of fusion 5. L3-4, L4-5 posterior segmental instrumentation with pedicle screw placement 6. L4-5 posterolatearl fusion 7. [place] of bone marrow from iliac crest through a separate incision 8. Utilization of microsurgical technique and operating microscope Same procedure as scheduled: Yes Indications: Patient has been having chronic back pain and worsening lumbar radiculopathy. Patient had prior lumbar fusion at L4-5 level with good relief of pain until about 6 months ago. Patient failed multiple conservative management with worsening pain weakness and numbness in her lower extremity. Patient has been having difficulty performing activity of daily living. After discussing risks benefits of treatment options, patient elected proceed with surgery. Surgeon: Millicent Barrett Credit Risk Associate: Stephanie Melton Click Yes if Unassisted: No Anesthesia Type: General Operative Notes Closure Type: primary Specimen(s): none sent Prosthetic devices, grafts, tissues, transplants, or devices: GLobus revolve screws, Rise cage Applied: catheter Estimated Blood Loss (mL): 50 Patient admitted and consented to the above-mentioned procedures. Patient taken to the operating room and is back in his room recovering in stable condition. Status at Discharge Cognitive/behavioral status at discharge: at baseline, oriented Functional status at discharge: uses cane/walker Overall status at discharge: patient is progressing back to baseline Time Spent with Patient Time spent: Less than 30 minutes Exam Vital Signs (past 8 hours): - 04/05/19 04:34 04/05/19 07:53 Temperature 98.3 F 98 F Pulse Rate 80 72 Respiratory Rate 16 20 Blood Pressure 123/76 144/84 H Pulse Oximetry 95 96 Oxygen Delivery Method CPAP Oxygen Flow Rate 0 Narrative Exam Narrative: 73-year-old male in no apparent distress. Patient just finished a shower with occupational therapy. Dressing is clean, dry and intact. Neurovascular status is intact bilateral lower extremities. Objective Labs Result Diagrams: 04/04/19 06:00 Discharge Plan Discharge Plan Patient Disposition: Home Discharge comment: DC home today Discharge Med Rec/Prescriptions Prescriptions: New oxycodone-acetaminophen 5-325 mg Tablet 2 tab PO Q4HR PRN (Reason: Pain, Severe (7-10)) Qty: 60 RF: 0 hydroxyzine pamoate 25 mg Capsule 25 mg PO Q4HR PRN (Reason: Nausea And Vomiting) Qty: 40 RF: 0 docusate sodium [DOK] 100 mg Capsule 100 mg PO BID Qty: 20 RF: 0 Continued cyclobenzaprine 10 mg Tablet 10 mg PO BEDTIME RF: 0 aspirin 81 mg Tablet,Delayed Release (Dr/Ec) 81 mg PO DAILY RF: 0 glimepiride 1 mg Tablet 1 mg PO BID RF: 0 acetaminophen [Tylenol Arthritis Pain] 650 mg Tablet Extended Release 1,300 mg PO DAILY RF: 0 citalopram 20 mg Tablet 20 mg PO BID RF: 0 pantoprazole 40 mg Tablet,Delayed Release (Dr/Ec) 40 mg PO DAILY RF: 0 simvastatin 20 mg Tablet 20 mg PO BEDTIME RF: 0 losartan 100 mg Tablet 100 mg PO DAILY RF: 0 Follow up/Referrals: Millicent Barrett MD [Physician] - (2 wks) Trisha Powell MD [Primary Care Provider] - Provider Discharge Instructions Diet: Diet as Tolerated Activity: Avoid excessive bending, lifting, twisting Cold/Heat Therapy: Apply ice as needed Skin/Wound/Dressing Care Report to your healthcare provider any signs of infection, such as:: chills, fever, increased pain, unusual drainage and unusual redness Dressing: Keep clean and dry Discharge Data Primary Care Provider: Trisha Powell VTE Deep Vein Thrombosis/Pulmonary Embolism Present on Admission: No
--- NOTE | 2019-04-05 09:58 | OT.IP.TRT ---
Current Diagnoses Spinal stenosis, lumbar region without neurogenic claudication (04/03/19) Arthrodesis status (04/03/19) Surgery Performed Operation Date: 04/03/19 07:45 Actual Procedures p L3-4 Translaminar interbody fusion, L4-5 Hardware removal, L3-5 Posterior spinal fusion with instrumentation - Millicent Barrett MD Occupational Therapy Treatment Note M3 OT- IP Subjective and Pain Start: 04/04/19 09:12 Freq: Status: Active Protocol: Document 04/05/19 09:58 PJM (Rec: 04/05/19 16:33 PJM [id number]) OT- Subjective Occupational Therapy Visit Type Type Treatment Note Visit Start Time 09:15 Visit Stop Time 09:58 Total Visit Minutes 43 Notes Pt's here for education this session. Occupational Therapy Visit Comments Patient Comments This shower feel really good. Patient/Caregiver Goals to go home today OT Pain Assessment Pain When Pain Assessed After Treatment Pain Present Pain Present Pain Reported Location Lower Back Intensity 3 Scale Used Numeric (1 - 10) Description Aching,Acute Management Techniques Distraction,Re-positioning, Timing of Activity with Medications M4 OT- IP ADL's Start: 04/04/19 09:12 Freq: Status: Active Protocol: Document 04/05/19 09:58 PJM (Rec: 04/05/19 16:33 PJ [id number]) OT ADL-Grooming General Evaluation Grooming Ability Independent Comments OT Grooming Comments standing at sink OT ADL-Oral Care Comments Oral Care Comments standing at sink OT ADL-Dressing General Eval Upper Body Dressing Ability Independent Lower Body Dressing Ability Standby Assistance Assistive Devices Dressing Assistive Devices Group Therapy Counselor,Sock Aid Comments OT Dressing Comments min cues for sock aid technique; provided education to re: sock aid use OT ADL-Toileting General Evaluation Toileting Ability Independent Comments OT Toileting Comments provided education re: body mechanics during salvatore care OT ADL-Bathing Bathing Type Bathing Type Shower General Evaluation Bathing Ability Minimal Assistance Areas Needing Assistance Wash/Dry Back,Wash/Dry Lower Extremities Devices Bathing Equipment Long Handled Sponge or [place], Shower Chair with Arms,Grab Bars Comments OT Bathing Comments Pt will use long bath sponge at home. Recommend grab bars by pt's tub shower combo at home. to provide SBA for tub transfer at home. Pt has shower seat. to assist PRN. M6 OT- IP Functional Cognition Start: 04/04/19 09:12 Freq: Status: Active Protocol: Document 04/05/19 09:58 PJM (Rec: 04/05/19 16:33 [facility] [id number]) Cognitive Factors Limiting Selfcare Function Cognitive Ability Level of Alertness Alert Patient Orientation Name,Age,Birthday,Month,Date, Year,Day of Week,Place, Situation Attention Span Ability Capable of Focused Attention, Capable of Sustained Attention Ability to Follow Commands Able to Follow One Step Commands Cognitive Comments Cognitive Assessment Comments Pt recalling 3/3 lumbar spine precautions; needs occasional min cues to avoid bending and twisting. verbalizes good understanding of all precautions. M7 OT- IP Mobility and Balance Start: 04/04/19 09:12 Freq: Status: Active Protocol: Document 04/05/19 09:58 PJM (Rec: 04/05/19 16:33 [facility] [id number]) OT- Bed Mobility Assessment Rolling Type of Rolling Roll to Left Level of Assistance Standby Assistance Supine to Sit Supine to Sit Assist Independent Scooting Scooting to Edge of Bed Independent OT-Transfer Assessment Sit to and From Stand Sit to and from Stand Standby Assistance,1 Person Assistance Transfers Transfer Ability Standby Assistance,1 Person Assistance Technique Transfer Destination Car,Chair,Shower Stall Transfer Technique Stand Step Pivot Devices Transfer Assistive Devices Gait Belt,Front Wheeled Walker Comments Mobility Comments pt need min cues for log roll technique OT- Gait Assessment Gait Gait Assistance Required: Standby Assistance Distance (Feet) 20 Assistive Devices Assistive Device Gait Belt,Front Wheeled Walker Comments Gait Ability Comments no loss of balance noted OT- Balance Assessment Sitting Balance and Reactions Static Sitting Balance Ability Good Dynamic Sitting Balance Ability Good Standing Balance and Reactions Static Standing Balance Ability Good Dynamic Standing Balance Ability Good Comments Other Balance Tests/Deviations/Treatment light use of grab bars during : standing portion of shower M9 OT- IP Assessment and Plan Start: 04/04/19 09:12 Freq: Status: Active Protocol: Document 04/05/19 09:58 PJM (Rec: 04/05/19 16:33 [facility] [id number]) OT Summary Assessment and Plan Potential Rehabilitation Potential Good Summary Progress Towards Goals Safe For Discharge,Goals Met Assessment Summary All OT education completed with pt and today as described above. Pt plans to d /c home today with 24 hr family assist from and son. Frequency of Treatment Frequency Of Treatment Discharge Treatment Plan OT Treatment Plan ADL Training,Functional Mobility,Patient/Family Education,Discharge Planning Discharge Recommendations OT Discharge Recommendations Home with 24/ Assist Home Equipment Needs grab bars by tub
--- NOTE | 2019-04-05 10:57 | PT.IPTN ---
Current Diagnoses Spinal stenosis, lumbar region without neurogenic claudication (04/03/19) Arthrodesis status (04/03/19) Surgery Performed Operation Date: 04/03/19 07:45 Actual Procedures p L3-4 Translaminar interbody fusion, L4-5 Hardware removal, L3-5 Posterior spinal fusion with instrumentation - Millicent Barrett MD Physical Therapy Treatment Note M2 PT-IP Current Condition Start: 04/03/19 14:45 Freq: NEEDED Status: Active Protocol: Document 04/03/19 16:54 AW (Rec: 04/03/19 17:12 AW [id number]) Physical Therapy Current Condition Current Condition Evaluation Date 04/03/19 Treatment Diagnosis s/p L3-L5 TLIF, impaired bed mobility, transfers, and gait Precautions Lumbar Precautions Log Roll,No Twisting,Limit Bending,Lifting Restriction of 10 lbs,Gait Belt above Incisional Area Other Precautions Pt currently on 1L supplemental oxygen Weight Bearing Status Weight Bearing Status Full Weight Bearing M3 PT-IP Subjective Start: 04/03/19 14:45 Freq: NEEDED Status: Active Protocol: Document 04/05/19 10:46 AW (Rec: 04/05/19 10:57 AW [id number]) Subjective Physical Therapy Visit Type Type Treatment Note Visit Start Time 10:24 Visit Stop Time 10:39 Total Visit Minutes 15 Number of MATERIALS TECHNICIAN Visits 0 Physical Therapy Visit Comments Patient Comments Pt is dressed, visiting with spouse and grandchild, ready for discharge Therapy Pain Assessment Pain When Pain Assessed During Mobility Pain Present Pain Present Pain Reported Location Lower Back Intensity 3 Scale Used Numeric (1 - 10) Pain Management Techniques Re-positioning,Timing of Activity with Medications M4 PT-IP Mobility and Gait Start: 04/03/19 14:45 Freq: NEEDED Status: Active Protocol: Document 04/05/19 10:46 AW (Rec: 04/05/19 10:57 AW [id number]) PT-Bed Mobility Assessment Rolling Type of Rolling Log Rolling Level of Assist Contact Guard Assistance Supine to Sit Supine to Sit Standby Assistance Sit to Supine Sit to Supine Standby Assistance PT-Transfer Assessment Sit to and From Stand Sit to and from Stand Standby Assistance,Use of Upper Extremities Equipment Transfer Assistive Device Gait Belt,Front Wheeled Walker Orthotic/Prosthetic Devices or Brace: No Transfers Transfer Destination Bed,Chair Transfer Ability Level of Assist Standby Assistance Comments Mobility Comments Log roll x 3 with minimal cues to slow down in order to avoid any twisting and SBA. Pt able to verbalize and execute strategy for log roll with good understanding Gait Assessment Gait Gait Assistance Required: Standby Assistance Distance (Feet) 300 Able to Maintain Weight Bearing Status Yes During Gait Assistive Devices Assistive Device Front Wheeled Walker Orthotic/Prosthetic Devices or Brace: No Gait Deviations General Gait Pattern Antalgic,Decreased Feet Clearance Factors Limiting Gait Function Factors Limiting Gait Function Pain Comments Gait Comments Pt ambulated using FWW SBA with granddaughter at side. Pt able to turn head and nod while walking with no path deviation or significant change in gait speed. Stair Climbing Assessment Evaluation Level of Assist On Stairs Standby Assistance Devices Stair Climbing Assistive Devices Right Railing Technique/Endurance Stair Climbing Direction Ascend and Descend Stair Climbing Technique Step Over Step,Step to Step Number of Steps Climbed 3 Stair Climbing Set # Repetitions (reps) 4 Comments Stair Climbing Comments Pt completed up/down 3 steps x 4 using R rail SBA M5 PT-IP Objective Assessments Start: 04/03/19 14:45 Freq: NEEDED Status: Active Protocol: Document 04/03/19 16:54 AW (Rec: 04/03/19 17:12 AW [id number]) Orientation Orientation/Cognition Level of Alertness Alert Orientation Name,Month,Place,Situation Language Function Ability No Deficits Noted Safety Awareness Understands Safety Issues Memory Description No Deficits Noted Gross Range of Motion Upper Extremity ROM Assessment Within Functional Limits Lower Extremity ROM Assessment Within Functional Limits Strength Upper Extremity Strength Assessment Within Functional Limits Lower Extremity Strength Assessment Within Functional Limits Coordination Assessment Gross Coordination Gross Coordination WNL Sensation Assessment Sensation Gross Sensation WNL Muscle Tone Muscle Tone WNL Yes M6 PT-IP Treatment Start: 04/03/19 14:45 Freq: NEEDED Status: Active Protocol: Document 04/05/19 10:46 AW (Rec: 04/05/19 10:57 AW [id number]) Physical Therapy Treatment Education Education Provided Precautions,Safety M7 PT-IP Assessment and Plan Start: 04/03/19 14:45 Freq: NEEDED Status: Active Protocol: Document 04/05/19 10:46 AW (Rec: 04/05/19 10:57 AW [id number]) PT Summary Assessment and Plan Potential Rehabilitation Potential Good Summary Impairments Pain,ROM,Strength,Balance, Coordination,Sensation,Tone, Cognition,Bed Mobility, Transfers,Gait,Activity Tolerance Progress Towards Goals Progressing Toward Goals Assessment Summary Pt progressing with mobility, requiring decreased level of assist and improved gait pattern. He demonstrates good safety awareness, but does require cues to slow down with bed mobility in order to maintain spinal precautions. Goals Bed Mobility Goal Independent Transfer Goal Independent Gait Goal Independent Gait Distance 300 Other Goals Pt will ascend/descend 13 steps with left hand rail CGA or better. Frequency of Treatment Frequency Of Treatment Twice a Day Treatment Plan Physical Therapy Treatment Plan Bed Mobility Training,Transfer Training,Gait Training, Therapeutic Exercise,Balance Retraining,Post Op Education, Discharge Planning,Hot or Cold Pack,Neuromuscular Re-ed, Coordination Retraining,Manual Therapy Recommendations To Nursing Amount of Assist Needed Standby Assistance Discharge Recommendations PT Discharge Recommendations Home with Assistance
--- NOTE | 2019-04-05 13:43 | CM.IDA ---
Initial DCP Assessment Note: Pt is a 73 yo male, resident of [facility], now POD#2 from spinal surgery w/ Dr Barrett PCP: Andre Payer: [employer] Medicare Reviewed chart, pt discussed in multidisciplinary rounds this morning. Pt has been DC pending therapy clears for safe return home. pt has planned for home w/family. No SW needs identified. No needs expected from DC planning team although will remain available in case this changes today. PINKY Montgomery
== END 2019-04-05 11:10 | disposition home or self-care (01) | DRG 454 ==
PROVIDERS: Admitting Provider Orthopaedic Surgery Orthopaedic Surgery of the Spine; PCP Internal Medicine Geriatric Medicine; Visit Provider Orthopaedic Surgery Orthopaedic Surgery of the Spine
PROC: 0SG00AJ Fusion of Lumbar Vertebral Joint with Interbody Fusion Device, Posterior Approach, Anterior Column, Open Approach (ICD-10-PCS; principal; 2019-04-03 07:45)
DX: M48.061 Spinal stenosis, lumbar region without neurogenic claudication (principal); M96.0 Pseudarthrosis after fusion or arthrodesis; M47.26 Other spondylosis with radiculopathy, lumbar region; M96.1 Postlaminectomy syndrome, not elsewhere classified; E11.9 Type 2 diabetes mellitus without complications; G47.33 Obstructive sleep apnea (adult) (pediatric); G25.81 Restless legs syndrome; I10 Essential (primary) hypertension; K21.9 Gastro-esophageal reflux disease without esophagitis; I25.10 Atherosclerotic heart disease of native coronary artery without angina pectoris; E78.2 Mixed hyperlipidemia; Z79.84 Long term (current) use of oral hypoglycemic drugs; R11.0 Nausea; L29.9 Pruritus, unspecified
CPT/HCPCS: 36415; 72100; 76000; 82962; 85014; 85018; 97116; 97161; 97165; 97530; 97535; C1776; C9290; J0330; J0690; J1100; J1170; J2405; J2704; J3010